=== PATIENT | male | born 1965 | race Caucasian/White ===

== ENCOUNTER 2019-03-31 07:57 | Observation (INO) | payer BC ==
[2019-03-31] MEDS ORDERED: Famotidine 20 MG/2 ML SDV IVPUSH ONE (08:04)
[2019-03-31] MEDS ORDERED: Aspirin 81 MG Tab.Chew CHEW ONE (08:04)
[2019-03-31] MEDS ORDERED: Metoprolol Tartrate 5 MG/5 ML SDV IVPUSH ONE (08:04)
[2019-03-31] MEDS ORDERED: Ticagrelor 90 MG Tab PO ONE (08:04)
--- NOTE | 2019-03-31 08:04 | EDM.PDOC ---
ED HPI GENERAL MEDICAL PROBLEM - General Chief Complaint: Cardiovascular Problem Stated Complaint: HTN,weakness Time Seen by Provider: 03/31/19 08:00 Source of Information: Reports: Patient, Old Records ([facility] chart/EMR) History Limitations: Reports: No Limitations - History of Present Illness INITIAL COMMENTS - FREE TEXT/NARRATIVE: The patient was brought to the emergency room via ambulance with EMT transport for evaluation of progressive generalized weakness, dizziness, mild blurred vision, dyspnea with minimal exertion, and diaphoresis with symptoms starting at about 07:00 a.m. this morning at work, although the patient did not feel right at 05:30 hours this morning. He has had 2 similar episodes during the last month with last episode about 2 weeks ago. There is some some possibility of some mild decreased exercise tolerance over the last couple of months. The patient denies any chest pain/pressure, heart flutter, orthostasis, orthopnea, paresthesias, recent decreased exercise tolerance, or any other anginal-type symptoms. No recent history of abdominal pain, heartburn, nausea, diarrhea, melena, gross hematochezia, or any food intolerance, including fatty foods, etc.. He denies any gross hematuria, colic, or other UTI symptoms. The patient also denies any recent fever, cough, wheezing, etc.. No history of recent headaches, diplopia, change in mental status, or other change in neurological status. He denies any pain or discomfort. Onset: Today, Gradual Onset Date: 03/31/19 Onset Time: 05:30 Duration: Constant, Getting Worse Location: Reports: Other (No pain) Quality: Reports: Same as Previous Episode (As above) Severity: Moderate Improves with: Reports: Rest Worsens with: Reports: Movement (Activity) Context: Reports: Other (As above). Denies: Sick Contact, Trauma Associated Symptoms: Reports: Diaphoresis, Rash (Chronic right hand over the last year), Shortness of Breath, Weakness (Generalized as above). Denies: Confusion, Chest Pain, Cough, Fever/Chills, Headaches, Loss of Appetite, Malaise , Nausea/Vomiting, Seizure, Syncope Treatments WAFER MOUNTER: Reports: Other (see below) (None) - Related Data Allergies Allergy/AdvReac Type Severity Reaction Status Date / Time amoxicillin Allergy Other Verified 03/31/19 08:03 Penicillins Allergy Cannot Verified 07/22/18 17:13 Remember Home Meds: Home Meds Fenofibrate,Micronized [Fenofibrate] 134 mg PO DAILY 03/31/19 [History] Metoprolol Succinate 25 mg PO DAILY 03/31/19 [History] Ubidecarenone [COQ-10] 1 tab PO DAILY 03/31/19 [History] Past Medical History HEENT History: Reports: Allergic Rhinitis, Cataract, Impaired Vision, Other ( See Below). Denies: Glaucoma, Macular Degeneration, Retinal Detachment Other HEENT History: He wears glasses. Beginning bilateral cataracts. Bilateral hearing loss of unknown etiology with no current therapy. Cardiovascular History: Reports: High Cholesterol, Hypertension, Other (See Below). Denies: Afib, Aneurysm, Arrhythmia, Blood Clots/VTE/DVT, CAD, Heart Failure, Heart Murmur, IN, PVD, Syncope Other Cardiovascular History: Dyslipidemia with fatty liver. Respiratory History: Reports: None. Denies: Asthma, Bronchitis, Recurrent, COPD , Intubation, Previous, PE, Pneumonia, Recurrent, Pneumothorax, Sleep Apnea Gastrointestinal History: Reports: Chronic Constipation, Other (See Below). Denies: Celiac Disease, Cholelithiasis, Chronic Diarrhea, Fecal Incontinence, Gastritis, GERD, GI Bleed, Hepatitis, Inflammatory Bowel Disease, Irritable Bowel Syndrome, Jaundice, Pancreatitis, PUD Other Gastrointestinal History: Benign hepatic cysts and fatty liver by CT and MRI as below in 2018. Genitourinary History: Reports: None. Denies: Acute Renal Failure, BPH, Chronic Renal Insuffiency, Renal Calculus, Retention, Urinary, STD, Urinary Incontinence, UTI, Recurrent Musculoskeletal History: Reports: Arthritis, Back Pain, Chronic, Fracture, Neck Pain, Chronic, Osteoarthritis, Other (See Below). Denies: Gout, RA, SLE Other Musculoskeletal History: Right foot fracture in the distal first and second metatarsals in about 2007. Right knee hyperextension. Neurological History: Reports: Headaches, Chronic, Neuropathy, Diabetic, Neuropathy, Peripheral. Denies: Cerebral Aneurysms, Concussion, CVA, Head Trauma, Migraines, MS, Parkinson's, Seizure, TIA, Vertigo Psychiatric History: Reports: None. Denies: Abuse, Victim of, ADD, ADHD, Addiction, Anxiety, Depression, Psych Hospitalization(s), PTSD, Suicide Attempt , Suicidal Ideation Endocrine/Metabolic History: Reports: Diabetes, Type II, Obesity/BMI 30+. Denies: Diabetes, Type I, Hypothyroidism, IDDM Hematologic History: Reports: None. Denies: Anemia, Blood Transfusion(s), Iron Deficiency Immunologic History: Reports: None. Denies: AIDS, HIV, SLE Oncologic (Cancer) History: Reports: None. Denies: Basal Cell Carcinoma, Colon , Hodgkin's Lymphoma, Leukemia, Lymphoma, Malignant Melanoma, Non-Hodgkin's Lymphoma, Prostate, Squamous Cell Carcinoma Dermatologic History: Reports: None. Denies: Eczema, Psoriasis - Infectious Disease History Infectious Disease History: Reports: Chicken Pox, Pertussis (Whooping Cough). Denies: C-Difficile, Measles, Meningitis, Mononucleosis, MRSA, Mumps, Rheumatic Fever, Rubella, Scarlet Fever, Shingles, TB, VRE - Past Surgical History Head Surgeries/Procedures: Reports: None HEENT Surgical History: Reports: Oral Surgery, Other (See Below). Denies: Adenoidectomy, Cataract Surgery, Eye Surgery, Laser Surgery, LASIK, Myringotomy w Tube(s), Naso-Sinus Surgery, Tonsillectomy Other HEENT Surgeries/Procedures: [place] teeth extraction 4 in his 20s. Additional teeth extractions. Cardiovascular Surgical History: Reports: None. Denies: Varicose Respiratory Surgical History: Reports: None. Denies: Thoracentesis GI Surgical History: Reports: None. Denies: Appendectomy, Cholecystectomy, Colonoscopy, EGD, Hernia, Abdominal, Hernia, Inguinal, Hernia Repair/Other Male Surgical History: Reports: Circumcision, Other (See Below). Denies: TURP-Transurethral Resection of Prostate, Vasectomy Other Male Surgeries/Procedures: Circumcision as an infant. Endocrine Surgical History: Reports: None. Denies: Thyroid Biopsy Neurological Surgical History: Denies: C-Spine, Discectomy, Laminectomy, Lumbar Spine, Spinal Fusion, Thoracic Spine, Vertebroplasty Musculoskeletal Surgical History: Reports: None. Denies: Arthroscopic Procedure , Carpal Tunnel, Ganglion Cyst, Joint Replacement, ORIF, Shoulder Surgery Oncologic Surgical History: Reports: None Dermatological Surgical History: Reports: None - Past Imaging History Past Imaging History: Reports: CAT Scan (CT of the abdomen and pelvis with contrast on 07/23/18.), MRI (MRI of the abdomen without contrast on 07/30/18.) Social & Family History - Family History HEENT: Reports: None. Denies: Glaucoma, Macular Degeneration, Retinal Detachment Cardiac: Reports: Bypass, CAD, Hypertension, Stent, Other (See Below). Denies: Afib, Arrhythmia, Blood Clots/VTE/DVT, Cardiomyopathy, Heart Failure, Heart Murmur, High Cholesterol, IN, PVD/COD, Syncope Other Cardiac Family History: Father with history of CABG 6 in his 60s with subsequent PTCA/stents 6. Maternal aunts 2 with CABG in their 70s. Parents with hypertension. Mother on "blood thinner" for unknown reason. Respiratory: Reports: None. Denies: Asthma, COPD, PE, Pneumothorax, Sleep Apnea GI: Reports: Cholelithiasis, Other (See Below). Denies: Celiac Disease, Colon Polyps, GERD, GI bleed, Inflammatory Bowel Disease, Irritable Bowel Syndrome, PUD Other GI Family History: Sister with cholecystectomy. : Reports: None. Denies: Dialysis, Renal Calculus, Renal Disease/ Insufficiency OBGYN: Reports: None. Denies: Endometriosis, Recurrent Spontaneous Musculoskeletal: Reports: Arthritis, Osteoarthritis, Other (See Below). Denies : Gout, RA, SLE Other Musculoskeletal Family History: Mother with arthritis. Neurological: Reports: CVA, Migraines, Other (See Below). Denies: Alzheimers Disease, Cerebral Aneurysms, Dementia, MS, Parkinson's, Seizure, TIA Other Neurological Family History: Maternal grandmother with CVA in her 70s. Psychiatric: Denies: Abuse, Victim of, ADD, ADHD, Anxiety, Depression, Psych Hospitalization(s), PTSD, Suicide Attempt Endocrine/Metabolic: Reports: Diabetes, type II, IDDM, Other (See Below). Denies: Diabetes, Type I, Hypothyroidism Other Endocrine/Metabolic Family History: Father, paternal grandmother, and sister with AODM with sister having borderline disease. Paternal grandfather with IDDM. Hematologic: Reports: None. Denies: Anemia, SLE Immunologic: Reports: None. Denies: AIDS, HIV, SLE Dermatologic: Reports: None. Denies: Eczema, Psoriasis Oncologic: Reports: Prostate, Skin, Other (See Below). Denies: Colon, Hodgkin' s Lymphoma, Leukemia, Non-Hodgkin's Lymphoma Other Oncologic Family History: Father with unknown type of cancer and additional unknown type of skin cancer. Paternal grandfather with fatal metastatic prostate cancer in his early 60s. - Tobacco Use Smoking Status *Q: Never Smoker Tobacco Use Within Last Twelve Months: No Used Tobacco, but Quit: No Smoking Cessation Information Provided To Patient: No Second Hand Smoke Exposure: No Second Hand Smoke Education Provided: No - Caffeine Use Caffeine Use: Reports: Soda (2 sodas per week). Denies: Coffee, Energy Drinks, Tea - Alcohol Use Alcohol Use History: Yes Days Per Week of Alcohol Use: 3 Number of Drinks Per Day: 2 Number of Drinks Per Day Comment: Usually beer. No previous DWIs, problems with alcohol abuse, etc. Total Drinks Per Week: 6 Date of Last Drink: 03/30/19 Alcohol Use in Last Twelve Months: Yes - Recreational Drug Use Recreational Drug Use: No Drug Use in Last 12 Months: No Recreational Drug Type: Denies: Amphetamines (Speed), Cocaine, Heroin, Inhalants (Glues, Solvents, Aerosols), LSD (Acid), Marijuana/Hashish, Methamphetamine, Morphine, Oxycodone - Living Situation & Occupation Living situation: Reports: (1999, no children), Alone Occupation: Employed ([employer] ED ROS GENERAL - Review of Systems Review Of Systems: ROS reveals no pertinent complaints other than HPI. ED EXAM, GENERAL - Physical Exam Exam: See Below Exam Limited By: No Limitations General Appearance: Alert, WD/WN, No Apparent Distress Eye Exam: Bilateral Eye: EOMI, Normal Fundi, Normal Inspection (No nystagmus), PERRL Ears: Normal External Exam, Normal Canal, Normal TMs, Hearing Loss (Mild to moderate bilateral). No: Hearing Grossly Normal Nose: Normal Inspection, Normal Mucosa, No Blood Throat/Mouth: Normal Inspection, Normal Lips, Normal Teeth (Occasional missing teeth), Normal Gums, Normal Oropharynx, Normal Voice, No Airway Compromise. No : Dysphagia, Perioral Cyanosis Head: Atraumatic, Normocephalic. No: Facial Swelling, Facial Tenderness, Sinus Tenderness Neck: Normal Inspection, Supple, Non-Tender, Full Range of Motion. No: Carotid Bruit, Lymphadenopathy (L), Lymphadenopathy (R), Thyromegaly Respiratory/Chest: No Respiratory Distress, Lungs Clear, Normal Breath Sounds, No Accessory Muscle Use, Chest Non-Tender. No: Pleural Rub, Retractions Cardiovascular: Normal Peripheral Pulses, Regular Rate, Rhythm, No Edema, No Gallop, No JVD, No Murmur, No Rub. No: Gallop/S3, Gallop/S4, Friction Rub Peripheral Pulses: 2+: Radial (L), Radial (R), Dorsalis Pedis (L), Dorsalis Pedis (R) GI/Abdominal: Normal Bowel Sounds, Soft, Non-Tender, No Organomegaly, No Distention, No Abnormal Bruit, No Mass, Other (obese). No: Guarding (Male) Exam: Deferred Rectal (Males) Exam: Deferred Back Exam: Normal Inspection, Full Range of Motion. No: CVA Tenderness (L), CVA Tenderness (R), Muscle Spasm Extremities: Normal Inspection, Normal Range of Motion, Non-Tender, No Pedal Edema, Normal Capillary Refill. No: Jm's Sign, Limited Range of Motion Neurological: Alert, Oriented, CN II-XII Intact, Normal Cognition, Normal Gait, Normal Reflexes (Negative Babinski's, finger to nose, and pronator rotation tests. No evidence of facial paresis, tongue deviation, orthostasis, etc.. Excellent reverse thought processes.), No Motor/Sensory Deficits Psychiatric: Normal Affect, Normal Mood Skin Exam: Warm, Dry, Intact, Normal Color, Rash (3 cm in diameter area of tinea over the dorsal aspect of his right hand). No: Diaphoretic, Wound/ Incision Lymphatic: No Adenopathy EKG INTERPRETATION EKG Date: 03/31/19 Time: 08:20 Rhythm: NSR Rate (Beats/Min): 80 [place]: Normal (Left cardiac axis) P-Wave: Present (Mild diffuse biphasic P waves with extreme poor R-wave progression in the anterior leads) QRS: Normal (0.09 seconds with mild repolarization changes) ST-T: Normal QT: Prolonged (416/479 ms) Comparison: NA - No Prior EKG EKG Interpretation Comments: 1. No acute ischemic changes 2. Borderline prolonged QT Course - Vital Signs Last Recorded V/S: Last Vital Signs Temp 37.6 C 03/31/19 08:08 Pulse 77 03/31/19 08:10 Resp 18 03/31/19 09:13 BP 190/92 H 03/31/19 09:13 Pulse Ox 95 03/31/19 09:13 - Orders/Labs/Meds Orders: Active Orders 24 hr Category Date Time Status Cardiac Monitoring [RC] . DIRECTED Care 03/31/19 08:04 Active EKG Documentation Completion [RC] ASDIRECTED Care 03/31/19 08:04 Active Oxygen Therapy, ED [RC] CONTINUOUS Care 03/31/19 08:04 Active Peripheral IV Care [RC] . DIRECTED Care 03/31/19 08:04 Active Pulse Oximetry [RC] CONTINUOUS Care 03/31/19 08:04 Active Up With Assistance [RC] PFP Care 03/31/19 08:04 Active Vital Signs [RC] PFP Care 03/31/19 08:04 Active Nothing per Oral Now Diet [DIET] Diet 03/31/19 Breakfast Active Chest 1V Frontal [CR] Stat Exams 03/31/19 08:04 Taken CK W CKMB [CHEM] Stat Lab 03/31/19 08:01 Received COMPREHENSIVE METABOLIC PN,CMP [CHEM] Stat Lab 03/31/19 08:01 Received CULTURE URINE [RM] Routine Lab 03/31/19 09:05 Ordered ETHANOL BLOOD MEDICAL [CHEM] Stat Lab 03/31/19 08:01 Received LACTIC ACID [CHEM] Stat Lab 03/31/19 08:01 Received MAGNESIUM [CHEM] Stat Lab 03/31/19 08:01 Received PRO B-TYPE NATRIUR PEPT,BNPPRO [CHEM] Stat Lab 03/31/19 08:01 Received TROPONIN I [CHEM] Stat Lab 03/31/19 08:01 Received TSH ULTRASENSITIVE [CHEM] Stat Lab 03/31/19 08:01 Received URIC ACID [CHEM] Stat Lab 03/31/19 08:01 Received URINALYSIS W/MICROSCOPIC [UA W/MICROSCOPIC] [URIN] Lab 03/31/19 09:05 Ordered Routine Nitroglycerin [Nitrostat] Med 03/31/19 08:05 Stat 0.4 mg SL ONETIME STA Sodium Chloride 0.9% [Saline Flush] Med 03/31/19 08:04 Active 10 ml FLUSH ASDIRECTED PRN Obtain Past Medical Record [OM.PC] Urgent Oth 03/31/19 08:04 Active Peripheral IV Insertion Adult [OM.PC] Stat Oth 03/31/19 08:04 Ordered Resuscitation Status Stat Resus Stat 03/31/19 08:04 Ordered EKG 12 Lead [EK] Stat Ther 03/31/19 08:04 Ordered Medication Orders Nitroglycerin (Nitrostat) 0.4 mg SL ONETIME STA Stop: 06/25/19 08:06 Last Admin: 03/31/19 08:10 Dose: 0.4 mg Sodium Chloride (Saline Flush) 10 ml FLUSH ASDIRECTED PRN PRN Reason: Keep Vein Open Last Admin: 03/31/19 09:05 Dose: 10 ml Admin: 03/31/19 08:45 Dose: 10 ml Admin: 03/31/19 08:11 Dose: 10 ml Labs: Laboratory Tests 03/31/19 03/31/19 03/31/19 Range/Units 08:00 08:01 08:01 WBC 4.0 (4.0-10.2) K/uL RBC 4.55 (4.33-5.41) M/uL Hgb 15.1 (13.1-16.8) g/dL Hct 43.0 (39.0-49.0) % MCV 94.5 D (84.0-98.0) fL MCH 33.2 (28.2-33.3) pg MCHC 35.1 (31.7-36.0) g/dL RDW 12.8 (11.2-14.1) % Plt Count 57 L (150-350) K/uL Neut % (Auto) 50.8 (45.0-80.0) % Lymph % (Auto) 35.6 (10.0-50.0) % [place] % (Auto) 11.4 (2.0-14.0) % Eos % (Auto) 1.7 (0.0-5.0) % Baso % (Auto) 0.5 (0.0-2.0) % Neut # (Auto) 2.05 (1.40-7.00) K/uL Lymph # (Auto) 1.44 (0.50-3.50) K/uL [place] # (Auto) 0.46 (0.00-1.00) K/uL Eos # (Auto) 0.07 (0.00-0.50) K/uL Baso # (Auto) 0.02 (0.00-0.20) K/uL PT 11.9 (9.5-12.0) SEC INR 1.1 APTT 29.3 (21.0-31.3) SEC D-Dimer, Quantitative (0-400) ng/mL POC Glucose 261 H* (65-110) mg/dl 03/31/19 Range/Units 08:01 WBC (4.0-10.2) K/uL RBC (4.33-5.41) M/uL Hgb (13.1-16.8) g/dL Hct (39.0-49.0) % MCV (84.0-98.0) fL MCH (28.2-33.3) pg MCHC (31.7-36.0) g/dL RDW (11.2-14.1) % Plt Count (150-350) K/uL Neut % (Auto) (45.0-80.0) % Lymph % (Auto) (10.0-50.0) % [place] % (Auto) (2.0-14.0) % Eos % (Auto) (0.0-5.0) % Baso % (Auto) (0.0-2.0) % Neut # (Auto) (1.40-7.00) K/uL Lymph # (Auto) (0.50-3.50) K/uL [place] # (Auto) (0.00-1.00) K/uL Eos # (Auto) (0.00-0.50) K/uL Baso # (Auto) (0.00-0.20) K/uL PT (9.5-12.0) SEC INR APTT (21.0-31.3) SEC D-Dimer, Quantitative 251 (0-400) ng/mL POC Glucose (65-110) mg/dl Meds: Medications Generic Name Dose Route Start Last Admin Trade Name Freq PRN Reason Stop Dose Admin Nitroglycerin 0.4 mg 03/31/19 08:05 03/31/19 08:10 Nitrostat SL 04/01/19 08:06 0.4 mg ONETIME STA Administration Sodium Chloride 10 ml 03/31/19 08:04 03/31/19 09:05 Saline Flush FLUSH 10 ml ASDIRECTED PRN Administration Keep Vein Open Discontinued Medications Generic Name Dose Route Start Last Admin Trade Name Freq PRN Reason Stop Dose Admin Aspirin 324 mg 03/31/19 08:04 03/31/19 08:09 Aspirin CHEW 03/31/19 08:05 324 mg ONETIME ONE Administration Famotidine 40 mg 03/31/19 08:04 03/31/19 08:10 Pepcid IVPUSH 03/31/19 08:05 40 mg ONETIME ONE Administration Labetalol HCl 10 mg 03/31/19 08:41 03/31/19 08:45 Normodyne IVPUSH 03/31/19 08:42 10 mg ONETIME ONE Administration Protocol Labetalol HCl 10 mg 03/31/19 09:02 03/31/19 09:05 Normodyne IVPUSH 03/31/19 09:03 10 mg ONETIME ONE Administration Protocol Metoprolol Tartrate 2.5 mg 03/31/19 08:04 03/31/19 08:10 Lopressor IVPUSH 03/31/19 08:05 2.5 mg ONETIME ONE Administration Ticagrelor 180 mg 03/31/19 08:04 03/31/19 08:10 Brilinta PO 03/31/19 08:05 180 mg ONETIME ONE Administration - Radiology Interpretation Free Text/Narrative:: Choirmaster shows normal sinus rhythm with heart rate in the 70-90s with no ectopy or arrhythmia. Chest x-ray, portable, shows moderately elevated right hemidiaphragm with borderline cardiomegaly possible centralized mild CHF. No pulmonary infiltrates , pneumothorax, etc. Departure - Departure Time of Disposition: 09:17 Disposition: Still A Patient 30 Condition: Good Clinical Impression: Dyslipidemia, Tinea, Weakness Diabetes mellitus Qualifiers: Diabetes mellitus type: type 2 Diabetes mellitus assisted insulin use: without assisted use Diabetes mellitus complication status: with neurologic complications Diabetes mellitus complication detail: with polyneuropathy Qualified Code(s): E11.42 - Type 2 diabetes mellitus with diabetic polyneuropathy Hypertension Qualifiers: Hypertension type: essential hypertension Qualified Code(s): I10 - Essential ( primary) hypertension Osteoarthritis Qualifiers: Osteoarthritis location: multiple joints Osteoarthritis type: primary Qualified Code(s): M15.0 - Primary generalized (osteo)arthritis Fever Qualifiers: Fever type: unspecified Qualified Code(s): R50.9 - Fever, unspecified Referrals: Marci Enriquez NP [Primary Care Provider] - Forms: ED Department Discharge - Problem List & Annotations (1) Hypertension SNOMED Code(s): 20762823 Code(s): I10 - ESSENTIAL (PRIMARY) HYPERTENSION Status: Acute Current Visit: No Annotation/Comment:: Blood pressure is under poor control with aggressive treatment in the emergency room as above. Continue medication adjustment during this hospitalization. Consider VENKATA inhibitor therapy Qualifiers: Hypertension type: essential hypertension Qualified Code(s): I10 - Essential (primary) hypertension (2) Weakness SNOMED Code(s): 62508099 Code(s): R53.1 - WEAKNESS Status: Acute Priority: High Current Visit: No Onset Date: ~03/31/19 Annotation/Comment:: Suspicious of possible threatening IN. Chest pain protocol was initiated upon patient's arrival in the emergency room. Note no chest pain or anginal type symptoms, however decreased exercise tolerance during the last couple of months. Initiated standard rule out IN orders shortly after patient's arrival to this facility with cardiology consultation depending on his clinical course. Patient would benefit from a Cardiolite stress test on an outpatient basis after his blood pressure is under better control. Borderline CHF by today's chest x-ray. The hospital's chemistry machine is down for the time being with no information concerning cardiac enzymes, etc. to this point. Note nonspecific generalized weakness, however no neurological deficits, or evidence of CVA, etc. by history and/or clinical exam. (3) Diabetes mellitus SNOMED Code(s): 84446590 Code(s): E11.9 - TYPE 2 DIABETES MELLITUS WITHOUT COMPLICATIONS Status: Chronic Priority: High Current Visit: No Annotation/Comment:: Glycosylated hemoglobin should be conducted during this hospitalization. Patient does not take Accu-Cheks at home. Qualifiers: Diabetes mellitus type: type 2 Diabetes mellitus termination clerk insulin use: without assisted use Diabetes mellitus complication status: with neurologic complications Diabetes mellitus complication detail: with polyneuropathy Qualified Code(s): E11.42 - Type 2 diabetes mellitus with diabetic polyneuropathy (4) Dyslipidemia SNOMED Code(s): 782423006 Code(s): E78.5 - HYPERLIPIDEMIA, UNSPECIFIED Status: Chronic Priority: Medium Current Visit: No Annotation/Comment:: Fasting lipid panel during this hospitalization. Weight loss in moderation advisable. (5) Osteoarthritis SNOMED Code(s): 919617571 Code(s): M19.90 - UNSPECIFIED OSTEOARTHRITIS, UNSPECIFIED SITE Status: Chronic Priority: Medium Current Visit: No Annotation/Comment:: Stable by history Qualifiers: Osteoarthritis location: multiple joints Osteoarthritis type: primary Qualified Code(s): M15.0 - Primary generalized (osteo)arthritis (6) Tinea SNOMED Code(s): 16996842 Code(s): B35.9 - DERMATOPHYTOSIS, UNSPECIFIED Status: Chronic Priority: High Current Visit: No Annotation/Comment:: Right hand tinea present for the last year as above. Consider Lotrisone treatment. (7) Fever SNOMED Code(s): 461877188 Code(s): R50.9 - FEVER, UNSPECIFIED Status: Acute Priority: Medium Current Visit: No Onset Date: 03/31/19 Annotation/Comment:: Fever of unknown etiology with no recent history of fever or evidence of infection by today's exam. UA with culture and sensitivity ordered. Qualifiers: Fever type: unspecified Qualified Code(s): R50.9 - Fever, unspecified - Problem List Review Problem List Initiated/Reviewed/Updated: Yes - My Orders Last 24 Hours: My Active Orders 03/31/19 08:01 CK W CKMB [CHEM] Stat COMPREHENSIVE METABOLIC PN,CMP [CHEM] Stat ETHANOL BLOOD MEDICAL [CHEM] Stat LACTIC ACID [CHEM] Stat MAGNESIUM [CHEM] Stat PRO B-TYPE NATRIUR PEPT,BNPPRO [CHEM] Stat TROPONIN I [CHEM] Stat TSH ULTRASENSITIVE [CHEM] Stat URIC ACID [CHEM] Stat 03/31/19 08:04 Cardiac Monitoring [RC] . DIRECTED EKG Documentation Completion [RC] ASDIRECTED Oxygen Therapy, ED [RC] CONTINUOUS Peripheral IV Care [RC] . DIRECTED Pulse Oximetry [RC] CONTINUOUS Up With Assistance [RC] PFP Vital Signs [RC] PFP Chest 1V Frontal [CR] Stat Sodium Chloride 0.9% [Saline Flush] 10 ml FLUSH ASDIRECTED PRN Obtain Past Medical Record [OM.PC] Urgent Peripheral IV Insertion Adult [OM.PC] Stat Resuscitation Status Stat EKG 12 Lead [EK] Stat 03/31/19 08:05 Nitroglycerin [Nitrostat] 0.4 mg SL ONETIME STA 03/31/19 09:05 CULTURE URINE [RM] Routine URINALYSIS W/MICROSCOPIC [UA W/MICROSCOPIC] [URIN] Routine 03/31/19 Breakfast Nothing per Oral Now Diet [DIET] - Assessment/Plan Last 24 Hours: My Active Orders 03/31/19 08:01 CK W CKMB [CHEM] Stat COMPREHENSIVE METABOLIC PN,CMP [CHEM] Stat ETHANOL BLOOD MEDICAL [CHEM] Stat LACTIC ACID [CHEM] Stat MAGNESIUM [CHEM] Stat PRO B-TYPE NATRIUR PEPT,BNPPRO [CHEM] Stat TROPONIN I [CHEM] Stat TSH ULTRASENSITIVE [CHEM] Stat URIC ACID [CHEM] Stat 03/31/19 08:04 Cardiac Monitoring [RC] . DIRECTED EKG Documentation Completion [RC] ASDIRECTED Oxygen Therapy, ED [RC] CONTINUOUS Peripheral IV Care [RC] . DIRECTED Pulse Oximetry [RC] CONTINUOUS Up With Assistance [RC] PFP Vital Signs [RC] PFP Chest 1V Frontal [CR] Stat Sodium Chloride 0.9% [Saline Flush] 10 ml FLUSH ASDIRECTED PRN Obtain Past Medical Record [OM.PC] Urgent Peripheral IV Insertion Adult [OM.PC] Stat Resuscitation Status Stat EKG 12 Lead [EK] Stat 03/31/19 08:05 Nitroglycerin [Nitrostat] 0.4 mg SL ONETIME STA 03/31/19 09:05 CULTURE URINE [RM] Routine URINALYSIS W/MICROSCOPIC [UA W/MICROSCOPIC] [URIN] Routine 03/31/19 Breakfast Nothing per Oral Now Diet [DIET] Assessment:: As above Plan: As above. Patient transferred at 09:10 hours to on-call physician, Dr. Rosas , who was updated concerning patient's status, etc. Probable placement of patient in observation status for rule out IN, adjustment of blood pressure medications, etc. as above.
[2019-03-31] MEDS ORDERED: Nitroglycerin 0.4 MG Tab.SL SL STA (08:05)
[2019-03-31] MEDS: Sodium Chloride 0.9% 10 ML Syringe FLUSH PRN ×4 (08:11→10:50)
[2019-03-31] MEDS ORDERED: Labetalol 20 MG/4 ML Syringe IVPUSH ONE ×3 (08:41→12:52)
[2019-03-31 09:32] LABS: CHLORIDE,CL 98 mmol/L (98-107); SODIUM,NA 137 mmol/L (136-145)
--- NOTE | 2019-03-31 09:45 | EDM.PDOC ---
ED HPI GENERAL MEDICAL PROBLEM - General Chief Complaint: Cardiovascular Problem Stated Complaint: HTN,weakness Time Seen by Provider: 03/31/19 08:00 Source of Information: Reports: Patient, Old Records ([facility] chart/EMR) History Limitations: Reports: No Limitations - History of Present Illness INITIAL COMMENTS - FREE TEXT/NARRATIVE: The patient was brought to the emergency room via ambulance with EMT transport for evaluation of progressive generalized weakness, dizziness, mild blurred vision, dyspnea with minimal exertion, and diaphoresis with symptoms starting at about 07:00 a.m. this morning at work, although the patient did not feel right at 05:30 hours this morning. He has had 2 similar episodes during the last month with last episode about 2 weeks ago. There is some some possibility of some mild decreased exercise tolerance over the last couple of months. The patient denies any chest pain/pressure, heart flutter, orthostasis, orthopnea, paresthesias, recent decreased exercise tolerance, or any other anginal-type symptoms. No recent history of abdominal pain, heartburn, nausea, diarrhea, melena, gross hematochezia, or any food intolerance, including fatty foods, etc.. He denies any gross hematuria, colic, or other UTI symptoms. The patient also denies any recent fever, cough, wheezing, etc.. No history of recent headaches, diplopia, change in mental status, or other change in neurological status. He denies any pain or discomfort. Onset: Today, Gradual Onset Date: 03/31/19 Onset Time: 05:30 Duration: Constant, Getting Worse Location: Reports: Other (No pain) Quality: Reports: Same as Previous Episode (As above) Severity: Moderate Improves with: Reports: Rest Worsens with: Reports: Movement (Activity) Context: Reports: Other (As above). Denies: Sick Contact, Trauma Associated Symptoms: Reports: Diaphoresis, Rash (Chronic right hand over the last year), Shortness of Breath, Weakness (Generalized as above). Denies: Confusion, Chest Pain, Cough, Fever/Chills, Headaches, Loss of Appetite, Malaise , Nausea/Vomiting, Seizure, Syncope Treatments STEREOTYPE MOLDER: Reports: Other (see below) (None) - Related Data Allergies Allergy/AdvReac Type Severity Reaction Status Date / Time amoxicillin Allergy Other Verified 03/31/19 08:03 Penicillins Allergy Cannot Verified 07/22/18 17:13 Remember Home Meds: Home Meds Fenofibrate,Micronized [Fenofibrate] 134 mg PO DAILY 03/31/19 [History] Metoprolol Succinate 25 mg PO DAILY 03/31/19 [History] Ubidecarenone [COQ-10] 1 tab PO DAILY 03/31/19 [History] Past Medical History HEENT History: Reports: Allergic Rhinitis, Cataract, Impaired Vision, Other ( See Below) Other HEENT History: He wears glasses. Beginning bilateral cataracts. Bilateral hearing loss of unknown etiology with no current therapy. Cardiovascular History: Reports: High Cholesterol, Hypertension, Other (See Below) Other Cardiovascular History: Dyslipidemia with fatty liver. Respiratory History: Reports: None Gastrointestinal History: Reports: Chronic Constipation, Other (See Below) Other Gastrointestinal History: Benign hepatic cysts and fatty liver by CT and MRI as below in 2018. Genitourinary History: Reports: None Musculoskeletal History: Reports: Arthritis, Back Pain, Chronic, Fracture, Neck Pain, Chronic, Osteoarthritis, Other (See Below) Other Musculoskeletal History: Right foot fracture in the distal first and second metatarsals in about 2007. Right knee hyperextension. Neurological History: Reports: Headaches, Chronic, Neuropathy, Diabetic, Neuropathy, Peripheral Psychiatric History: Reports: None Endocrine/Metabolic History: Reports: Diabetes, Type II, Obesity/BMI 30+ Hematologic History: Reports: None Immunologic History: Reports: None Oncologic (Cancer) History: Reports: None Dermatologic History: Reports: None - Infectious Disease History Infectious Disease History: Reports: Chicken Pox, Pertussis (Whooping Cough) - Past Surgical History Head Surgeries/Procedures: Reports: None HEENT Surgical History: Reports: Oral Surgery, Other (See Below) Other HEENT Surgeries/Procedures: [place] teeth extraction 4 in his 20s. Additional teeth extractions. Cardiovascular Surgical History: Reports: None Respiratory Surgical History: Reports: None GI Surgical History: Reports: None Male Surgical History: Reports: Circumcision, Other (See Below) Other Male Surgeries/Procedures: Circumcision as an . Endocrine Surgical History: Reports: None Musculoskeletal Surgical History: Reports: None Oncologic Surgical History: Reports: None Dermatological Surgical History: Reports: None - Past Imaging History Past Imaging History: Reports: CAT Scan (CT of the abdomen and pelvis with contrast on 07/23/18.), MRI (MRI of the abdomen without contrast on 07/30/18.) Social & Family History - Family History HEENT: Reports: None Cardiac: Reports: Bypass, CAD, Hypertension, Stent, Other (See Below) Other Cardiac Family History: Father with history of CABG 6 in his 60s with subsequent PTCA/stents 6. Maternal aunts 2 with CABG in their 70s. Parents with hypertension. Mother on "blood thinner" for unknown reason. Respiratory: Reports: None GI: Reports: Cholelithiasis, Other (See Below) Other GI Family History: Sister with cholecystectomy. : Reports: None OBGYN: Reports: None Musculoskeletal: Reports: Arthritis, Osteoarthritis, Other (See Below) Other Musculoskeletal Family History: Mother with arthritis. Neurological: Reports: CVA, Migraines, Other (See Below) Other Neurological Family History: Maternal grandmother with CVA in her 70s. Psychiatric: Denies: Abuse, Victim of, ADD, ADHD, Anxiety, Depression, Psych Hospitalization(s), PTSD, Suicide Attempt Endocrine/Metabolic: Reports: Diabetes, type II, IDDM, Other (See Below) Other Endocrine/Metabolic Family History: Father, paternal grandmother, and sister with AODM with sister having borderline disease. Paternal grandfather with IDDM. Hematologic: Reports: None Immunologic: Reports: None Dermatologic: Reports: None Oncologic: Reports: Prostate, Skin, Other (See Below) Other Oncologic Family History: Father with unknown type of cancer and additional unknown type of skin cancer. Paternal grandfather with fatal metastatic prostate cancer in his early 60s. - Tobacco Use Smoking Status *Q: Never Smoker Used Tobacco, but Quit: No Second Hand Smoke Exposure: No - Caffeine Use Caffeine Use: Reports: Soda - Alcohol Use Days Per Week of Alcohol Use: 3 Number of Drinks Per Day: 2 Total Drinks Per Week: 6 Date of Last Drink: 03/30/19 - Recreational Drug Use Recreational Drug Use: No Drug Use in Last 12 Months: No Recreational Drug Type: Denies: Amphetamines (Speed), Cocaine, Heroin, Inhalants (Glues, Solvents, Aerosols), LSD (Acid), Marijuana/Hashish, Methamphetamine, Morphine, Oxycodone - Living Situation & Occupation Living situation: Reports: (1999, no children), Alone Occupation: Employed ([employer]) ED ROS GENERAL - Review of Systems Review Of Systems: See Below (see Dr.Loperena's noted) ED EXAM, GENERAL - Physical Exam Exam: See Below Free Text/Narrative:: The patient was brought to the emergency room via ambulance with EMT transport for evaluation of progressive generalized weakness, dizziness, mild blurred vision, dyspnea with minimal exertion, and diaphoresis with symptoms starting at about 07:00 a.m. this morning at work, although the patient did not feel right at 05:30 hours this morning. He has had 2 similar episodes during the last month with last episode about 2 weeks ago. There is some some possibility of some mild decreased exercise tolerance over the last couple of months. The patient denies any chest pain/pressure, heart flutter, orthostasis, orthopnea, paresthesias, recent decreased exercise tolerance, or any other anginal-type symptoms. No recent history of abdominal pain, heartburn, nausea, diarrhea, melena, gross hematochezia, or any food intolerance, including fatty foods, etc.. He denies any gross hematuria, colic, or other UTI symptoms. The patient also denies any recent fever, cough, wheezing, etc.. No history of recent headaches, diplopia, change in mental status, or other change in neurological status. He denies any pain or discomfort. Exam Limited By: No Limitations General Appearance: Alert, WD/WN, No Apparent Distress Ears: Normal External Exam, Normal Canal, Normal TMs, Hearing Loss (Mild to moderate bilateral). No: Hearing Grossly Normal Nose: Normal Inspection, Normal Mucosa, No Blood Throat/Mouth: Normal Inspection, Normal Lips, Normal Teeth (Occasional missing teeth), Normal Gums, Normal Oropharynx, Normal Voice, No Airway Compromise. No : Dysphagia, Perioral Cyanosis Head: Atraumatic, Normocephalic. No: Facial Swelling, Facial Tenderness, Sinus Tenderness Neck: Normal Inspection, Supple, Non-Tender, Full Range of Motion. No: Carotid Bruit, Lymphadenopathy (L), Lymphadenopathy (R), Thyromegaly Respiratory/Chest: No Respiratory Distress, Lungs Clear, Normal Breath Sounds, No Accessory Muscle Use, Chest Non-Tender. No: Pleural Rub, Retractions Cardiovascular: Normal Peripheral Pulses, Regular Rate, Rhythm, No Edema, No Gallop, No JVD, No Murmur, No Rub. No: Gallop/S3, Gallop/S4, Friction Rub Peripheral Pulses: 2+: Radial (L), Radial (R), Dorsalis Pedis (L), Dorsalis Pedis (R) GI/Abdominal: Normal Bowel Sounds, Soft, Non-Tender, No Organomegaly, No Distention, No Abnormal Bruit, No Mass, Other (obese). No: Guarding Back Exam: Normal Inspection, Full Range of Motion. No: CVA Tenderness (L), CVA Tenderness (R), Muscle Spasm Extremities: Normal Inspection, Normal Range of Motion, Non-Tender, No Pedal Edema, Normal Capillary Refill. No: Jm's Sign, Limited Range of Motion Neurological: Alert, Oriented, CN II-XII Intact, Normal Cognition, Normal Gait, Normal Reflexes (Negative Babinski's, finger to nose, and pronator rotation tests. No evidence of facial paresis, tongue deviation, orthostasis, etc.. Excellent reverse thought processes.), No Motor/Sensory Deficits Psychiatric: Normal Affect, Normal Mood Skin Exam: Warm, Dry, Intact, Normal Color, Rash (3 cm in diameter area of tinea over the dorsal aspect of his right hand). No: Diaphoretic, Wound/ Incision Lymphatic: No Adenopathy Course - Vital Signs Last Recorded V/S: Last Vital Signs Temp 37.6 C 03/31/19 08:08 Pulse 77 03/31/19 08:10 Resp 20 03/31/19 09:26 BP 175/91 H 03/31/19 09:26 Pulse Ox 95 03/31/19 09:26 - Orders/Labs/Meds Orders: Active Orders 24 hr Category Date Time Status Cardiac Monitoring [RC] . DIRECTED Care 03/31/19 08:04 Active EKG Documentation Completion [RC] ASDIRECTED Care 03/31/19 08:04 Active Oxygen Therapy, ED [RC] CONTINUOUS Care 03/31/19 08:04 Active Peripheral IV Care [RC] . DIRECTED Care 03/31/19 08:04 Active Pulse Oximetry [RC] CONTINUOUS Care 03/31/19 08:04 Active Up With Assistance [RC] PFP Care 03/31/19 08:04 Active Vital Signs [RC] PFP Care 03/31/19 08:04 Active Nothing per Oral Now Diet [DIET] Diet 03/31/19 Breakfast Active Chest 1V Frontal [CR] Stat Exams 03/31/19 08:04 Taken CULTURE URINE [RM] Routine Lab 03/31/19 09:20 Received URINALYSIS W/MICROSCOPIC [UA W/MICROSCOPIC] [URIN] Lab 03/31/19 09:20 Received Routine Nitroglycerin [Nitrostat] Med 03/31/19 08:05 Stat 0.4 mg SL ONETIME STA Sodium Chloride 0.9% [Saline Flush] Med 03/31/19 08:04 Active 10 ml FLUSH ASDIRECTED PRN Obtain Past Medical Record [OM.PC] Urgent Oth 03/31/19 08:04 Active Peripheral IV Insertion Adult [OM.PC] Stat Oth 03/31/19 08:04 Ordered Resuscitation Status Stat Resus Stat 03/31/19 08:04 Ordered EKG 12 Lead [EK] Stat Ther 03/31/19 08:04 Ordered Medication Orders Nitroglycerin (Nitrostat) 0.4 mg SL ONETIME STA Stop: 04/01/19 08:06 Last Admin: 03/31/19 08:10 Dose: 0.4 mg Sodium Chloride (Saline Flush) 10 ml FLUSH ASDIRECTED PRN PRN Reason: Keep Vein Open Last Admin: 03/31/19 09:05 Dose: 10 ml Admin: 03/31/19 08:45 Dose: 10 ml Admin: 03/31/19 08:11 Dose: 10 ml Labs: Laboratory Tests 03/31/19 03/31/19 03/31/19 Range/Units 08:00 08:01 08:01 WBC 4.0 (4.0-10.2) K/uL RBC 4.55 (4.33-5.41) M/uL Hgb 15.1 (13.1-16.8) g/dL Hct 43.0 (39.0-49.0) % MCV 94.5 D (84.0-98.0) fL MCH 33.2 (28.2-33.3) pg MCHC 35.1 (31.7-36.0) g/dL RDW 12.8 (11.2-14.1) % Plt Count 57 L (150-350) K/uL Neut % (Auto) 50.8 (45.0-80.0) % Lymph % (Auto) 35.6 (10.0-50.0) % [place] % (Auto) 11.4 (2.0-14.0) % Eos % (Auto) 1.7 (0.0-5.0) % Baso % (Auto) 0.5 (0.0-2.0) % Neut # (Auto) 2.05 (1.40-7.00) K/uL Lymph # (Auto) 1.44 (0.50-3.50) K/uL [place] # (Auto) 0.46 (0.00-1.00) K/uL Eos # (Auto) 0.07 (0.00-0.50) K/uL Baso # (Auto) 0.02 (0.00-0.20) K/uL PT 11.9 (9.5-12.0) SEC INR 1.1 APTT 29.3 (21.0-31.3) SEC D-Dimer, Quantitative (0-400) ng/mL Sodium (136-145) mmol/L Potassium (3.5-5.1) mmol/L Chloride (98-107) mmol/L Carbon Dioxide (21.0-32.0) mmol/L BUN (7-18) mg/dL Creatinine (0.51-1.17) mg/dL Est Cr Clr Drug Dosing mL/min Estimated GFR (MDRD) mL/min Glucose (74-106) mg/dL POC Glucose 261 H* (65-110) mg/dl Lactic Acid (0.4-2.0) mmol/L Uric Acid (2.6-7.2) mg/dL Calcium (8.5-10.1) mg/dL Magnesium (1.8-2.4) mg/dL Total Bilirubin (0.2-1.0) mg/dL AST (15-37) U/L ALT (12-78) U/L Alkaline Phosphatase (46-116) IU/L Creatine Kinase (26-308) U/L Creatine Kinase Index (0.0-2.5) % CK-MB (CK-2) (0.00-3.60) ng/mL Troponin I (0.000-0.056) ng/mL NT-Pro-B Natriuret Pep (0-125) pg/mL Total Protein (6.4-8.2) g/dL Albumin (3.4-5.0) g/dL TSH, Ultra Sensitive (0.358-3.740) mIU/mL Ethyl Alcohol (0.000-0.080) g/dL 03/31/19 03/31/19 03/31/19 Range/Units 08:01 08:01 08:01 WBC (4.0-10.2) K/uL RBC (4.33-5.41) M/uL Hgb (13.1-16.8) g/dL Hct (39.0-49.0) % MCV (84.0-98.0) fL MCH (28.2-33.3) pg MCHC (31.7-36.0) g/dL RDW (11.2-14.1) % Plt Count (150-350) K/uL Neut % (Auto) (45.0-80.0) % Lymph % (Auto) (10.0-50.0) % [place] % (Auto) (2.0-14.0) % Eos % (Auto) (0.0-5.0) % Baso % (Auto) (0.0-2.0) % Neut # (Auto) (1.40-7.00) K/uL Lymph # (Auto) (0.50-3.50) K/uL [place] # (Auto) (0.00-1.00) K/uL Eos # (Auto) (0.00-0.50) K/uL Baso # (Auto) (0.00-0.20) K/uL PT (9.5-12.0) SEC INR APTT (21.0-31.3) SEC D-Dimer, Quantitative 251 (0-400) ng/mL Sodium 137 (136-145) mmol/L Potassium 3.3 L (3.5-5.1) mmol/L Chloride 98 (98-107) mmol/L Carbon Dioxide 24.7 (21.0-32.0) mmol/L BUN 7 (7-18) mg/dL Creatinine 0.62 (0.51-1.17) mg/dL Est Cr Clr Drug Dosing 139.37 mL/min Estimated GFR (MDRD) > 60 mL/min Glucose 263 H (74-106) mg/dL POC Glucose (65-110) mg/dl Lactic Acid 1.9 (0.4-2.0) mmol/L Uric Acid 2.7 (2.6-7.2) mg/dL Calcium 9.0 (8.5-10.1) mg/dL Magnesium 1.6 L (1.8-2.4) mg/dL Total Bilirubin 1.2 H (0.2-1.0) mg/dL AST 89 H (15-37) U/L ALT 51 (12-78) U/L Alkaline Phosphatase 89 (46-116) IU/L Creatine Kinase 248 (26-308) U/L Creatine Kinase Index 1.1 (0.0-2.5) % CK-MB (CK-2) 2.70 (0.00-3.60) ng/mL Troponin I 0.000 (0.000-0.056) ng/mL NT-Pro-B Natriuret Pep 28 (0-125) pg/mL Total Protein 8.3 H (6.4-8.2) g/dL Albumin 3.4 (3.4-5.0) g/dL TSH, Ultra Sensitive 2.976 (0.358-3.740) mIU/mL Ethyl Alcohol 0.177 H (0.000-0.080) g/dL Meds: Medications Generic Name Dose Route Start Last Admin Trade Name Freq PRN Reason Stop Dose Admin Nitroglycerin 0.4 mg 03/31/19 08:05 03/31/19 08:10 Nitrostat SL 04/01/19 08:06 0.4 mg ONETIME STA Administration Sodium Chloride 10 ml 03/31/19 08:04 03/31/19 09:05 Saline Flush FLUSH 10 ml ASDIRECTED PRN Administration Keep Vein Open Discontinued Medications Generic Name Dose Route Start Last Admin Trade Name Freq PRN Reason Stop Dose Admin Aspirin 324 mg 03/31/19 08:04 03/31/19 08:09 Aspirin CHEW 03/31/19 08:05 324 mg ONETIME ONE Administration Famotidine 40 mg 03/31/19 08:04 03/31/19 08:10 Pepcid IVPUSH 03/31/19 08:05 40 mg ONETIME ONE Administration Labetalol HCl 10 mg 03/31/19 08:41 03/31/19 08:45 Normodyne IVPUSH 03/31/19 08:42 10 mg ONETIME ONE Administration Protocol Labetalol HCl 10 mg 03/31/19 09:02 03/31/19 09:05 Normodyne IVPUSH 03/31/19 09:03 10 mg ONETIME ONE Administration Protocol Metoprolol Tartrate 2.5 mg 03/31/19 08:04 03/31/19 08:10 Lopressor IVPUSH 03/31/19 08:05 2.5 mg ONETIME ONE Administration Ticagrelor 180 mg 03/31/19 08:04 03/31/19 08:10 Brilinta PO 03/31/19 08:05 180 mg ONETIME ONE Administration - Re-Assessments/Exams Free Text/Narrative Re-Assessment/Exam: 03/31/19 09:40 Patient's care handed over to me shortly after 9am. Pending chemistry labs at that time. Please see 's note for initial history, exam, and workup. Troponin zero. However ETOH 0.177, AST 89, Bili 1.2, Mg 1.6, and K 3.3 Plan at this time is to admit the patient to Observation for serial troponins and telemetry to more completely rule out ischemia/MS given reported symptoms. Certainly the elevated BP, ETOH use, and low Magnesium could be contributing factors in patient's presenting complaints. Departure - Departure Time of Disposition: 09:44 Disposition: Refer to Observation Condition: Good Clinical Impression: Dyslipidemia, Tinea, Weakness, Hypomagnesemia Diabetes mellitus Qualifiers: Diabetes mellitus type: type 2 Diabetes mellitus termite exterminator insulin use: without termite exterminator use Diabetes mellitus complication status: with neurologic complications Diabetes mellitus complication detail: with polyneuropathy Qualified Code(s): E11.42 - Type 2 diabetes mellitus with diabetic polyneuropathy Hypertension Qualifiers: Hypertension type: essential hypertension Qualified Code(s): I10 - Essential ( primary) hypertension Osteoarthritis Qualifiers: Osteoarthritis location: multiple joints Osteoarthritis type: primary Qualified Code(s): M15.0 - Primary generalized (osteo)arthritis Fever Qualifiers: Fever type: unspecified Qualified Code(s): R50.9 - Fever, unspecified Elevated ETOH level Qualifiers: Blood alcohol level: 100-119 mg/100 ml Qualified Code(s): Y90.5 - Blood alcohol level of 100-119 mg/100 ml Referrals: Marci Enriquez NP [Primary Care Provider] - Forms: ED Department Discharge - Problem List & Annotations (1) Weakness SNOMED Code(s): 99728746 Code(s): R53.1 - WEAKNESS Status: Acute Priority: High Current Visit: Yes Onset Date: ~03/31/19 Annotation/Comment:: Suspicious of possible threatening MS. Chest pain protocol was initiated upon patient's arrival in the emergency room. Note no chest pain or anginal type symptoms, however decreased exercise tolerance during the last couple of months. Initiated standard rule out MS orders shortly after patient's arrival to this facility with cardiology consultation depending on his clinical course. Patient would benefit from a Cardiolite stress test on an outpatient basis after his blood pressure is under better control. Borderline CHF by today's chest x-ray. The hospital's chemistry machine is down for the time being with no information concerning cardiac enzymes, etc. to this point. Note nonspecific generalized weakness, however no neurological deficits, or evidence of CVA, etc. by history and/or clinical exam. (2) Elevated ETOH level SNOMED Code(s): 029769203 Code(s): R78.0 - FINDING OF ALCOHOL IN BLOOD Status: Acute Priority: High Current Visit: Yes Annotation/Comment:: Patient denies having any ETOH today. States that he had "2 drinks" last night. Denies dependence/abuse. Will observe for any signs of withdrawal during Observation admission. Nurse at [facility] was concerned that patient smelled of ETOH when she initially evaluated him. ER staff also thought they smelled ETOH when patient arrived. Qualifiers: Blood alcohol level: 100-119 mg/100 ml (3) Hypomagnesemia SNOMED Code(s): 185543017 Code(s): E83.42 - HYPOMAGNESEMIA Status: Acute Priority: High Current Visit: Yes Annotation/Comment:: Low Magnesium has been linked to hypertension as well as dizziness. Will give replacement while on Observation and recheck level in AM (4) Diabetes mellitus SNOMED Code(s): 51122842 Code(s): E11.9 - TYPE 2 DIABETES MELLITUS WITHOUT COMPLICATIONS Status: Chronic Priority: High Current Visit: Yes Annotation/Comment:: Glycosylated hemoglobin should be conducted during this hospitalization. Patient does not take Accu-Cheks at home. Qualifiers: Diabetes mellitus type: type 2 Diabetes mellitus termite exterminator insulin use: without longterm use Diabetes mellitus complication status: with neurologic complications Diabetes mellitus complication detail: with polyneuropathy Qualified Code(s): E11.42 - Type 2 diabetes mellitus with diabetic polyneuropathy (5) Hypertension SNOMED Code(s): 66241063 Code(s): I10 - ESSENTIAL (PRIMARY) HYPERTENSION Status: Acute Priority: High Current Visit: Yes Annotation/Comment:: Blood pressure is under poor control with aggressive treatment in the emergency room as above. Continue medication adjustment during this hospitalization. Consider VENKATA inhibitor therapy Qualifiers: Hypertension type: essential hypertension Qualified Code(s): I10 - Essential (primary) hypertension (6) Dyslipidemia SNOMED Code(s): 913294273 Code(s): E78.5 - HYPERLIPIDEMIA, UNSPECIFIED Status: Chronic Priority: Medium Current Visit: No Annotation/Comment:: Fasting lipid panel during this hospitalization. Weight loss in moderation advisable. (7) Osteoarthritis SNOMED Code(s): 759531606 Code(s): M19.90 - UNSPECIFIED OSTEOARTHRITIS, UNSPECIFIED SITE Status: Chronic Priority: Medium Current Visit: Yes Annotation/Comment:: Stable by history Qualifiers: Osteoarthritis location: multiple joints Osteoarthritis type: primary Qualified Code(s): M15.0 - Primary generalized (osteo)arthritis (8) Tinea SNOMED Code(s): 94902301 Code(s): B35.9 - DERMATOPHYTOSIS, UNSPECIFIED Status: Chronic Priority: Low Current Visit: Yes Annotation/Comment:: Right hand tinea present for the last year as above. Consider Lotrisone treatment. (9) Fever SNOMED Code(s): 593626075 Code(s): R50.9 - FEVER, UNSPECIFIED Status: Acute Priority: Medium Current Visit: Yes Onset Date: 03/31/19 Annotation/Comment:: Fever of unknown etiology with no recent history of fever or evidence of infection by today's exam. UA with culture and sensitivity ordered. Qualifiers: Fever type: unspecified Qualified Code(s): R50.9 - Fever, unspecified (10) Insomnia SNOMED Code(s): 360798067 Code(s): G47.00 - INSOMNIA, UNSPECIFIED Status: Chronic Priority: Medium Current Visit: Yes Annotation/Comment:: Patient reports recent insomnia issues over the past few months. May be ETOH related given the significantly elevated blood ETOH noted today. Qualifiers: Insomnia type: unspecified Qualified Code(s): G47.00 - Insomnia, unspecified - Problem List Review Problem List Initiated/Reviewed/Updated: Yes - Assessment/Plan Admission H&P: Please use this note as an admission H&P Assessment:: as above Plan: as above
[2019-03-31] MEDS ORDERED: LORazepam 2 MG/ML SDV IVPUSH ONE (10:00)
[2019-03-31] MEDS ORDERED: Ondansetron 4 MG Tab.DIS PO PRN (10:00)
[2019-03-31] MEDS ORDERED: Magnesium Sulfate/D5W 1 GM/100 ML Premix Bag IV ONE ×2 (10:04→15:00)
[2019-03-31] MEDS ORDERED: Metoprolol Tartrate 25 MG Tab PO ONE (10:04)
[2019-03-31] MEDS ORDERED: Potassium Chloride 20 MEQ Tab.ER PO ONE ×3 (10:05→21:00)
[2019-03-31] MEDS ORDERED: Sodium Chloride 0.9% 1,000 ML IV ONE (10:07)
[2019-03-31] MEDS ORDERED: Diazepam 5 MG Tab PO PRN (12:58)
[2019-03-31] MEDS ORDERED: Lisinopril 5 MG Tab PO SCH (13:00)
[2019-03-31] MEDS ORDERED: Metoprolol Succinate 25 MG Tab.ER PO ONE (16:05)
[2019-03-31] MEDS ORDERED: Betamethasone Dipropionate/Clotrimazole 0.05-1% Crm 15 GM Tube TOP SCH (18:15)
--- NOTE | 2019-03-31 18:27 | PCM.DCSUM1 ---
Discharge Summary - Hospital Course Brief History: Patient admitted to Observation for evaluation of dizziness/ weakness/hypertension. Noted to have low Mg and K, and elevated ETOH. Diagnosis: Stroke: No - Discharge Data Discharge Date: 03/31/19 Discharge Disposition: DC/Tfer to Acute Hospital 02 Condition: Good - Discharge Diagnosis/Problem(s) (1) Hypertension SNOMED Code(s): 04262680 ICD Code: I10 - ESSENTIAL (PRIMARY) HYPERTENSION Status: Acute Priority: High Current Visit: Yes Problem Details: Blood pressure is under poor control with aggressive treatment in the emergency room as above. Only minor improvement noted despite multiple doses of IV Labetolol, IV Metoprolol Tartrate , PO doses of Lisinopril, Metoprolol Succinate, Metoprolol Tartrate, and Ativan. Qualifiers: Hypertension type: essential hypertension Qualified Code(s): I10 - Essential (primary) hypertension (2) Weakness SNOMED Code(s): 79488214 ICD Code: R53.1 - WEAKNESS Status: Acute Priority: High Current Visit: Yes Onset Date: ~03/31/19 Problem Details: This is third episode of sudden severe weakness that patient has experienced over the past 30 days. Episodes last two days before good improvement is noted per patient. Accompanied by dizziness and vision being described as "weird" Chest pain protocol was initiated upon patient's arrival in the emergency room. Note no chest pain or anginal type symptoms, however decreased exercise tolerance during the last couple of months. Initiated standard rule out NV orders shortly after patient's arrival to this facility. Note nonspecific generalized weakness, however no neurological deficits, or evidence of CVA, etc. by history and/or clinical exam. (3) Insomnia SNOMED Code(s): 997656148 ICD Code: G47.00 - INSOMNIA, UNSPECIFIED Status: Chronic Priority: Medium Current Visit: Yes Problem Details: Patient reports sudden recent insomnia issues over the past few months. No previous history of insomnia Qualifiers: Insomnia type: unspecified Qualified Code(s): G47.00 - Insomnia, unspecified (4) Elevated ETOH level SNOMED Code(s): 561209885 ICD Code: R78.0 - FINDING OF ALCOHOL IN BLOOD Status: Acute Priority: High Current Visit: Yes Problem Details: Patient denies having any ETOH today. States that he had "2 drinks" last night. Denies dependence/abuse. No observed changes suggestive of withdrawal noted during stay. Nurse at [facility] was concerned that patient smelled of ETOH when she initially evaluated him. ER staff also thought they smelled ETOH when patient arrived. Qualifiers: Blood alcohol level: 100-119 mg/100 ml Qualified Code(s): Y90.5 - Blood alcohol level of 100-119 mg/100 ml (5) Hypomagnesemia SNOMED Code(s): 552793244 ICD Code: E83.42 - HYPOMAGNESEMIA Status: Acute Priority: High Current Visit: Yes Problem Details: Low Magnesium has been linked to hypertension as well as dizziness. Received IV Magnesium after admission to [facility]. (6) Diabetes mellitus SNOMED Code(s): 75297678 ICD Code: E11.9 - TYPE 2 DIABETES MELLITUS WITHOUT COMPLICATIONS Status: Chronic Priority: High Current Visit: Yes Problem Details: Glycosylated hemoglobin and accuchecks requested. Patient does not take Accu-Checks at home. Qualifiers: Diabetes mellitus type: type 2 Diabetes mellitus middle or intermediate school principal insulin use: without group home use Diabetes mellitus complication status: with neurologic complications Diabetes mellitus complication detail: with polyneuropathy Qualified Code(s): E11.42 - Type 2 diabetes mellitus with diabetic polyneuropathy (7) Dyslipidemia SNOMED Code(s): 805848672 ICD Code: E78.5 - HYPERLIPIDEMIA, UNSPECIFIED Status: Chronic Priority: Medium Current Visit: No Problem Details: Fasting lipid panel was to be obtained in AM. (8) Osteoarthritis SNOMED Code(s): 965943005 ICD Code: M19.90 - UNSPECIFIED OSTEOARTHRITIS, UNSPECIFIED SITE Status: Chronic Priority: Medium Current Visit: Yes Problem Details: Stable by history Qualifiers: Osteoarthritis location: multiple joints Osteoarthritis type: primary Qualified Code(s): M15.0 - Primary generalized (osteo)arthritis (9) Tinea SNOMED Code(s): 11050194 ICD Code: B35.9 - DERMATOPHYTOSIS, UNSPECIFIED Status: Chronic Priority: Low Current Visit: Yes Problem Details: Right hand tinea present for the last year as above. Consider Lotrisone treatment. (10) Fever SNOMED Code(s): 138282992 ICD Code: R50.9 - FEVER, UNSPECIFIED Status: Acute Priority: Medium Current Visit: Yes Onset Date: 03/31/19 Problem Details: Low grade fever of unknown etiology with no recent history of fever or evidence of infection by today's exam. UA unremarkable for UTI. Qualifiers: Fever type: unspecified Qualified Code(s): R50.9 - Fever, unspecified (11) Hypokalemia SNOMED Code(s): 58441812 ICD Code: E87.6 - HYPOKALEMIA Status: Acute Priority: Medium Current Visit: Yes Problem Details: Oral potassium replacement initiated. - Patient Summary/Data Hospital Course: Patient's BP improved slightly, but overall remained significantly elevated throughout Observation stay despite multiple medications aimed at obtaining BP reduction. No obvious signs of ETOH withdrawal noted. Call placed at 1800 to [place] and discussed patient with , Hospitalist. It was decided that patient would benefit from transfer to their facility for a more in-depth workup of his complaints, which will likely include an MRI study to look for lesser common causes of persistent, difficult to treat hypertension. Transfer by EMS arranged. - Discharge Plan Home Medications: Home Meds Fenofibrate,Micronized [Fenofibrate] 134 mg PO DAILY 03/31/19 [History] Metoprolol Succinate 25 mg PO DAILY 03/31/19 [History] Ubidecarenone [COQ-10] 1 tab PO DAILY 03/31/19 [History] Patient Handouts: Potassium chloride tablets, extended-release tablets or capsules, Metoprolol tablets, Ticagrelor oral tablet, Magnesium Sulfate injection, Type 2 Diabetes Mellitus, Self Care, Adult, [id number], Hypertension, Mmrn-[id number], Lorazepam injection, Blood Glucose Monitoring, Adult Forms: ED Department Discharge Referrals: Marci Enriquez [employer] [Primary Care Provider] - - Discharge Summary/Plan Comment DC Time >30 min.: No - Patient Data Vitals - Most Recent: Last Vital Signs Temp 36.8 C 03/31/19 17:58 Pulse 65 03/31/19 17:58 Resp 12 03/31/19 17:58 BP 193/85 H 03/31/19 17:58 Pulse Ox 94 L 03/31/19 17:58 Weight - Most Recent: 101.968 kg I&O - Last 24 hours: Intake & Output 03/31/19 03/31/19 03/31/19 06:59 14:59 22:59 Intake Total 200 480 Output Total 700 800 Balance -500 -320 Lab Results - Last 24 hrs: Laboratory Results - last 24 hr 03/31/19 03/31/19 03/31/19 Range/Units 08:00 08:01 08:01 WBC 4.0 (4.0-10.2) K/uL RBC 4.55 (4.33-5.41) M/uL Hgb 15.1 (13.1-16.8) g/dL Hct 43.0 (39.0-49.0) % MCV 94.5 D (84.0-98.0) fL MCH 33.2 (28.2-33.3) pg MCHC 35.1 (31.7-36.0) g/dL RDW 12.8 (11.2-14.1) % Plt Count 57 L (150-350) K/uL Neut % (Auto) 50.8 (45.0-80.0) % Lymph % (Auto) 35.6 (10.0-50.0) % Crowley % (Auto) 11.4 (2.0-14.0) % Eos % (Auto) 1.7 (0.0-5.0) % Baso % (Auto) 0.5 (0.0-2.0) % Neut # (Auto) 2.05 (1.40-7.00) K/uL Lymph # (Auto) 1.44 (0.50-3.50) K/uL Crowley # (Auto) 0.46 (0.00-1.00) K/uL Eos # (Auto) 0.07 (0.00-0.50) K/uL Baso # (Auto) 0.02 (0.00-0.20) K/uL PT 11.9 (9.5-12.0) SEC INR 1.1 APTT 29.3 (21.0-31.3) SEC D-Dimer, Quantitative (0-400) ng/mL Sodium (136-145) mmol/L Potassium (3.5-5.1) mmol/L Chloride (98-107) mmol/L Carbon Dioxide (21.0-32.0) mmol/L BUN (7-18) mg/dL Creatinine (0.51-1.17) mg/dL Est Cr Clr Drug Dosing mL/min Estimated GFR (MDRD) mL/min Glucose (74-106) mg/dL POC Glucose 261 H* (65-110) mg/dl Lactic Acid (0.4-2.0) mmol/L Uric Acid (2.6-7.2) mg/dL Calcium (8.5-10.1) mg/dL Magnesium (1.8-2.4) mg/dL Total Bilirubin (0.2-1.0) mg/dL AST (15-37) U/L ALT (12-78) U/L Alkaline Phosphatase (46-116) IU/L Creatine Kinase (26-308) U/L Creatine Kinase Index (0.0-2.5) % CK-MB (CK-2) (0.00-3.60) ng/mL Troponin I (0.000-0.056) ng/mL NT-Pro-B Natriuret Pep (0-125) pg/mL Total Protein (6.4-8.2) g/dL Albumin (3.4-5.0) g/dL TSH, Ultra Sensitive (0.358-3.740) mIU/mL Specimen Type Urine Color Urine Appearance Urine pH (5.0-9.0) Ur Specific Bow (1.005-1.030) Urine Protein (NEGATIVE) mg/dL Urine Glucose (UA) (NEGATIVE) mg/dL Urine Ketones (NEGATIVE) mg/dL Urine Occult Blood (NEGATIVE) Urine Nitrite (NEGATIVE) Urine Bilirubin (NEGATIVE) Urine Urobilinogen (0.2-1.0) E.U./dL Ur Leukocyte Esterase (NEGATIVE) Urine RBC /HPF Urine WBC /HPF Ur Epithelial Cells /LPF Urine Bacteria (NONE TO FEW) /HPF Ethyl Alcohol (0.000-0.080) g/dL 03/31/19 03/31/19 03/31/19 Range/Units 08:01 08:01 08:01 WBC (4.0-10.2) K/uL RBC (4.33-5.41) M/uL Hgb (13.1-16.8) g/dL Hct (39.0-49.0) % MCV (84.0-98.0) fL MCH (28.2-33.3) pg MCHC (31.7-36.0) g/dL RDW (11.2-14.1) % Plt Count (150-350) K/uL Neut % (Auto) (45.0-80.0) % Lymph % (Auto) (10.0-50.0) % Crowley % (Auto) (2.0-14.0) % Eos % (Auto) (0.0-5.0) % Baso % (Auto) (0.0-2.0) % Neut # (Auto) (1.40-7.00) K/uL Lymph # (Auto) (0.50-3.50) K/uL Crowley # (Auto) (0.00-1.00) K/uL Eos # (Auto) (0.00-0.50) K/uL Baso # (Auto) (0.00-0.20) K/uL PT (9.5-12.0) SEC INR APTT (21.0-31.3) SEC D-Dimer, Quantitative 251 (0-400) ng/mL Sodium 137 (136-145) mmol/L Potassium 3.3 L (3.5-5.1) mmol/L Chloride 98 (98-107) mmol/L Carbon Dioxide 24.7 (21.0-32.0) mmol/L BUN 7 (7-18) mg/dL Creatinine 0.62 (0.51-1.17) mg/dL Est Cr Clr Drug Dosing 139.37 mL/min Estimated GFR (MDRD) > 60 mL/min Glucose 263 H (74-106) mg/dL POC Glucose (65-110) mg/dl Lactic Acid 1.9 (0.4-2.0) mmol/L Uric Acid 2.7 (2.6-7.2) mg/dL Calcium 9.0 (8.5-10.1) mg/dL Magnesium 1.6 L (1.8-2.4) mg/dL Total Bilirubin 1.2 H (0.2-1.0) mg/dL AST 89 H (15-37) U/L ALT 51 (12-78) U/L Alkaline Phosphatase 89 (46-116) IU/L Creatine Kinase 248 (26-308) U/L Creatine Kinase Index 1.1 (0.0-2.5) % CK-MB (CK-2) 2.70 (0.00-3.60) ng/mL Troponin I 0.000 (0.000-0.056) ng/mL NT-Pro-B Natriuret Pep 28 (0-125) pg/mL Total Protein 8.3 H (6.4-8.2) g/dL Albumin 3.4 (3.4-5.0) g/dL TSH, Ultra Sensitive 2.976 (0.358-3.740) mIU/mL Specimen Type Urine Color Urine Appearance Urine pH (5.0-9.0) Ur Specific Bow (1.005-1.030) Urine Protein (NEGATIVE) mg/dL Urine Glucose (UA) (NEGATIVE) mg/dL Urine Ketones (NEGATIVE) mg/dL Urine Occult Blood (NEGATIVE) Urine Nitrite (NEGATIVE) Urine Bilirubin (NEGATIVE) Urine Urobilinogen (0.2-1.0) E.U./dL Ur Leukocyte Esterase (NEGATIVE) Urine RBC /HPF Urine WBC /HPF Ur Epithelial Cells /LPF Urine Bacteria (NONE TO FEW) /HPF Ethyl Alcohol 0.177 H (0.000-0.080) g/dL 03/31/19 03/31/19 03/31/19 Range/Units 09:20 11:05 13:48 WBC (4.0-10.2) K/uL RBC (4.33-5.41) M/uL Hgb (13.1-16.8) g/dL Hct (39.0-49.0) % MCV (84.0-98.0) fL MCH (28.2-33.3) pg MCHC (31.7-36.0) g/dL RDW (11.2-14.1) % Plt Count (150-350) K/uL Neut % (Auto) (45.0-80.0) % Lymph % (Auto) (10.0-50.0) % Crowley % (Auto) (2.0-14.0) % Eos % (Auto) (0.0-5.0) % Baso % (Auto) (0.0-2.0) % Neut # (Auto) (1.40-7.00) K/uL Lymph # (Auto) (0.50-3.50) K/uL Crowley # (Auto) (0.00-1.00) K/uL Eos # (Auto) (0.00-0.50) K/uL Baso # (Auto) (0.00-0.20) K/uL PT (9.5-12.0) SEC INR APTT (21.0-31.3) SEC D-Dimer, Quantitative (0-400) ng/mL Sodium (136-145) mmol/L Potassium (3.5-5.1) mmol/L Chloride (98-107) mmol/L Carbon Dioxide (21.0-32.0) mmol/L BUN (7-18) mg/dL Creatinine (0.51-1.17) mg/dL Est Cr Clr Drug Dosing mL/min Estimated GFR (MDRD) mL/min Glucose (74-106) mg/dL POC Glucose 240 H (65-110) mg/dl Lactic Acid (0.4-2.0) mmol/L Uric Acid (2.6-7.2) mg/dL Calcium (8.5-10.1) mg/dL Magnesium (1.8-2.4) mg/dL Total Bilirubin (0.2-1.0) mg/dL AST (15-37) U/L ALT (12-78) U/L Alkaline Phosphatase (46-116) IU/L Creatine Kinase (26-308) U/L Creatine Kinase Index (0.0-2.5) % CK-MB (CK-2) (0.00-3.60) ng/mL Troponin I 0.000 (0.000-0.056) ng/mL NT-Pro-B Natriuret Pep (0-125) pg/mL Total Protein (6.4-8.2) g/dL Albumin (3.4-5.0) g/dL TSH, Ultra Sensitive (0.358-3.740) mIU/mL Specimen Type Urincc Urine Color Dark yellow Urine Appearance Clear Urine pH 6.5 (5.0-9.0) Ur Specific Bow 1.020 (1.005-1.030) Urine Protein Trace H (NEGATIVE) mg/dL Urine Glucose (UA) 500 H (NEGATIVE) mg/dL Urine Ketones Negative (NEGATIVE) mg/dL Urine Occult Blood Negative (NEGATIVE) Urine Nitrite Negative (NEGATIVE) Urine Bilirubin Negative (NEGATIVE) Urine Urobilinogen 1.0 (0.2-1.0) E.U./dL Ur Leukocyte Esterase Negative (NEGATIVE) Urine RBC 0-5 /HPF Urine WBC 0-5 /HPF Ur Epithelial Cells Rare /LPF Urine Bacteria Rare (NONE TO FEW) /HPF Ethyl Alcohol (0.000-0.080) g/dL 03/31/19 Range/Units 17:04 WBC (4.0-10.2) K/uL RBC (4.33-5.41) M/uL Hgb (13.1-16.8) g/dL Hct (39.0-49.0) % MCV (84.0-98.0) fL MCH (28.2-33.3) pg MCHC (31.7-36.0) g/dL RDW (11.2-14.1) % Plt Count (150-350) K/uL Neut % (Auto) (45.0-80.0) % Lymph % (Auto) (10.0-50.0) % Crowley % (Auto) (2.0-14.0) % Eos % (Auto) (0.0-5.0) % Baso % (Auto) (0.0-2.0) % Neut # (Auto) (1.40-7.00) K/uL Lymph # (Auto) (0.50-3.50) K/uL Crowley # (Auto) (0.00-1.00) K/uL Eos # (Auto) (0.00-0.50) K/uL Baso # (Auto) (0.00-0.20) K/uL PT (9.5-12.0) SEC INR APTT (21.0-31.3) SEC D-Dimer, Quantitative (0-400) ng/mL Sodium (136-145) mmol/L Potassium (3.5-5.1) mmol/L Chloride (98-107) mmol/L Carbon Dioxide (21.0-32.0) mmol/L BUN (7-18) mg/dL Creatinine (0.51-1.17) mg/dL Est Cr Clr Drug Dosing mL/min Estimated GFR (MDRD) mL/min Glucose (74-106) mg/dL POC Glucose 225 H (65-110) mg/dl Lactic Acid (0.4-2.0) mmol/L Uric Acid (2.6-7.2) mg/dL Calcium (8.5-10.1) mg/dL Magnesium (1.8-2.4) mg/dL Total Bilirubin (0.2-1.0) mg/dL AST (15-37) U/L ALT (12-78) U/L Alkaline Phosphatase (46-116) IU/L Creatine Kinase (26-308) U/L Creatine Kinase Index (0.0-2.5) % CK-MB (CK-2) (0.00-3.60) ng/mL Troponin I (0.000-0.056) ng/mL NT-Pro-B Natriuret Pep (0-125) pg/mL Total Protein (6.4-8.2) g/dL Albumin (3.4-5.0) g/dL TSH, Ultra Sensitive (0.358-3.740) mIU/mL Specimen Type Urine Color Urine Appearance Urine pH (5.0-9.0) Ur Specific Bow (1.005-1.030) Urine Protein (NEGATIVE) mg/dL Urine Glucose (UA) (NEGATIVE) mg/dL Urine Ketones (NEGATIVE) mg/dL Urine Occult Blood (NEGATIVE) Urine Nitrite (NEGATIVE) Urine Bilirubin (NEGATIVE) Urine Urobilinogen (0.2-1.0) E.U./dL Ur Leukocyte Esterase (NEGATIVE) Urine RBC /HPF Urine WBC /HPF Ur Epithelial Cells /LPF Urine Bacteria (NONE TO FEW) /HPF Ethyl Alcohol (0.000-0.080) g/dL Med Orders - Current: Current Medications Betamethasone/Clotrimazole (Lotrisone) 1 gm TOP BID [facility] Coenzyme Q10 (Coenzyme Q10) 30 mg PO DAILY [facility] Diazepam (Valium.) 10 mg PO ONETIME PRN PRN Reason: WITHDRAWAL SYMPTOMS Fenofibrate (Fenofibrate) 134 mg PO DAILY [facility] Lisinopril (Prinivil) 10 mg PO DAILY [facility] Metoprolol Succinate (Toprol Xl) 25 mg PO DAILY [facility] Nitroglycerin (Nitrostat) 0.4 mg SL ONETIME STA Stop: 04/01/19 08:06 Last Admin: 03/31/19 08:10 Dose: 0.4 mg Ondansetron HCl (Zofran Odt) 4 mg PO Q6H PRN PRN Reason: Nausea/Vomiting Potassium Chloride (Klor-Con M20) 20 meq PO ONETIME ONE Stop: 03/31/19 21:01 Sodium Chloride (Saline Flush) 10 ml FLUSH ASDIRECTED PRN PRN Reason: Keep Vein Open Last Admin: 03/31/19 10:50 Dose: 10 ml Discontinued Medications Aspirin (Aspirin) 324 mg CHEW ONETIME ONE Stop: 03/31/19 08:05 Last Admin: 03/31/19 08:09 Dose: 324 mg Famotidine (Pepcid) 40 mg IVPUSH ONETIME ONE Stop: 03/31/19 08:05 Last Admin: 03/31/19 08:10 Dose: 40 mg Sodium Chloride (Normal Saline) 1,000 mls @ 150 mls/hr IV .BOLUS ONE Stop: 03/31/19 16:46 Last Admin: 03/31/19 10:49 Dose: 150 mls/hr Magnesium Sulfate/Dextrose 1 (gm/ Premix) 100 mls @ 100 mls/hr IV ONETIME ONE Stop: 03/31/19 15:59 Last Admin: 03/31/19 14:47 Dose: 100 mls/hr Labetalol HCl (Normodyne) 10 mg IVPUSH ONETIME ONE; Protocol Stop: 03/31/19 08:42 Last Admin: 03/31/19 08:45 Dose: 10 mg Labetalol HCl (Normodyne) 10 mg IVPUSH ONETIME ONE; Protocol Stop: 03/31/19 09:03 Last Admin: 03/31/19 09:05 Dose: 10 mg Labetalol HCl (Normodyne) 10 mg IVPUSH ONETIME ONE; Protocol Stop: 03/31/19 12:53 Last Admin: 03/31/19 14:47 Dose: 10 mg Lisinopril (Prinivil) 5 mg PO DAILY [place] Lorazepam (Ativan) 0.5 mg IVPUSH ONETIME ONE Stop: 03/31/19 10:01 Last Admin: 03/31/19 10:49 Dose: 0.5 mg Magnesium Sulfate/Dextrose (Magnesium Sulfate In D5w 100 Premix) 1 gm IV ONETIME ONE Stop: 03/31/19 10:05 Last Admin: 03/31/19 10:49 Dose: 1 gm Metoprolol Succinate (Toprol Xl) 25 mg PO ONETIME ONE Stop: 03/31/19 16:06 Last Admin: 03/31/19 16:39 Dose: 25 mg Metoprolol Tartrate (Lopressor) 2.5 mg IVPUSH ONETIME ONE Stop: 03/31/19 08:05 Last Admin: 03/31/19 08:10 Dose: 2.5 mg Metoprolol Tartrate (Lopressor) 25 mg PO ONETIME ONE Stop: 03/31/19 10:05 Last Admin: 03/31/19 10:49 Dose: 25 mg Potassium Chloride (Klor-Con M20) 40 meq PO ONETIME ONE Stop: 03/31/19 10:06 Last Admin: 03/31/19 10:48 Dose: 40 meq Potassium Chloride (Klor-Con M20) 20 meq PO ONETIME ONE Stop: 03/31/19 16:01 Last Admin: 03/31/19 16:38 Dose: 20 meq Ticagrelor (Brilinta) 180 mg PO ONETIME ONE Stop: 03/31/19 08:05 Last Admin: 03/31/19 08:10 Dose: 180 mg - Exam General: Reports: Alert, Oriented, Cooperative, No Acute Distress HEENT: Reports: Pupils Equal, Pupils Reactive, EOMI, Mucous Membr. Moist/[place] Neck: Reports: Supple Lungs: Reports: Clear to Auscultation, Normal Respiratory Effort Cardiovascular: Reports: Regular Rate, Regular Rhythm GI/Abdominal Exam: Soft, Non-Tender (Male) Exam: Deferred Rectal (Males) Exam: Deferred Extremities: Normal Capillary Refill Skin: Reports: Warm, Dry Neurological: Reports: No New Focal Deficit Psy/Mental Status: Reports: Alert, Normal Affect, Normal Mood
[2019-04-01] MEDS ORDERED: Fenofibrate,Micronized 134 MG Cap PO SCH (08:00)
[2019-04-01] MEDS ORDERED: Metoprolol Succinate 25 MG Tab.ER PO SCH (08:00)
[2019-04-01] MEDS ORDERED: Lisinopril 5 MG Tab PO SCH (08:00)
== END 2019-03-31 19:30 ==
LOC: LL.ED 07:57 → UNDOADMOB 09:44 → LL.MS 09:44
PROVIDERS: ADMIT Emergency Medicine; ATTEND Emergency Medicine
DX: R53.1 Weakness (principal); I10 Essential (primary) hypertension; R42 Dizziness and giddiness; E87.6 Hypokalemia; E83.42 Hypomagnesemia; R78.0 Finding of alcohol in blood; R50.9 Fever, unspecified; E11.42 Type 2 diabetes mellitus with diabetic polyneuropathy; E78.00 Pure hypercholesterolemia, unspecified; B35.9 Dermatophytosis, unspecified; G47.00 Insomnia, unspecified; M15.0 Primary generalized (osteo)arthritis; Y90.5 Blood alcohol level of 100-119 mg/100 ml; Z88.0 Allergy status to penicillin; Z79.899 Other long term (current) drug therapy
CPT/HCPCS: 36415; 71045; 80053; 81001; 82550; 82553; 82962; 83605; 83735; 83880; 84443; 84484; 84550; 85025; 85379; 85610; 85730; 87086; 93005; 96374; 96375; 99285-25; A9270-GY; G0480; J2060; J3475; J3490; J7030

== ENCOUNTER 2020-05-11 08:43 | Emergency (ER) | payer BC ==
--- NOTE | 2020-05-11 09:45 | EDM.PDOC ---
ED HPI GENERAL MEDICAL PROBLEM - General Chief Complaint: Neurological Problem Time Seen by Provider: 05/11/20 08:45 Source of Information: Reports: Patient, EMS History Limitations: Reports: Altered Mental Status - History of Present Illness INITIAL COMMENTS - FREE TEXT/NARRATIVE: Pt brought to ER via EMS as stroke code Pt noted at 0730 to have episode where he was weak on left side and very confused while at work Unable to ambulate or stand due to left sided weakness Co-workers had to support him Very confused Unable to understand conversation or answer questions EMS states when they arrived on scene, symptoms had improved Upon arrival to ER, symptoms had essentially resolved except for mild confusion No previous hx/o same Pt states when he woke up this AM he did not feel right and almost called in sick to work [employer] fine last PM Onset: Today, Sudden Duration: Improving Location: Reports: Generalized - Related Data Allergies Allergy/AdvReac Type Severity Reaction Status Date / Time amoxicillin Allergy Other Verified 05/11/20 08:56 Penicillins Allergy Cannot Verified 07/22/18 17:13 Remember Home Meds: Home Meds Insulin Glarg,Human.Rec.Analog [Lantus Solostar] 10 unit SUBCUT BEDTIME 05/11/20 [History] Metoprolol Succinate 50 mg PO BEDTIME 05/11/20 [History] Rosuvastatin Calcium 10 mg PO BEDTIME 05/11/20 [History] lisinopriL [Lisinopril] 20 mg PO BEDTIME 05/11/20 [History] Past Medical History HEENT History: Reports: Allergic Rhinitis, Cataract, Impaired Vision, Other (See Below) Other HEENT History: He wears glasses. Beginning bilateral cataracts. Bilateral hearing loss of unknown etiology with no current therapy. Cardiovascular History: Reports: High Cholesterol, Hypertension, Other (See Below) Other Cardiovascular History: Dyslipidemia with fatty liver. Respiratory History: Reports: None Gastrointestinal History: Reports: Chronic Constipation, Other (See Below) Other Gastrointestinal History: Benign hepatic cysts and fatty liver by CT and MRI as below in 2018. Genitourinary History: Reports: None Musculoskeletal History: Reports: Arthritis, Back Pain, Chronic, Fracture, Neck Pain, Chronic, Osteoarthritis, Other (See Below) Other Musculoskeletal History: Right foot fracture in the distal first and second metatarsals in about 2007. Right knee hyperextension. Neurological History: Reports: Headaches, Chronic, Neuropathy, Diabetic, Neuropathy, Peripheral Psychiatric History: Reports: None Endocrine/Metabolic History: Reports: Diabetes, Type II, Obesity/BMI 30+ Hematologic History: Reports: None Immunologic History: Reports: None Oncologic (Cancer) History: Reports: None Dermatologic History: Reports: None - Infectious Disease History Infectious Disease History: Reports: Chicken Pox, Pertussis (Whooping Cough) - Past Surgical History Head Surgeries/Procedures: Reports: None HEENT Surgical History: Reports: Oral Surgery, Other (See Below) Other HEENT Surgeries/Procedures: [place] teeth extraction 4 in his 20s. Additional teeth extractions. Cardiovascular Surgical History: Reports: None Respiratory Surgical History: Reports: None GI Surgical History: Reports: None Male Surgical History: Reports: Circumcision, Other (See Below) Other Male Surgeries/Procedures: Circumcision as an . Endocrine Surgical History: Reports: None Musculoskeletal Surgical History: Reports: None Oncologic Surgical History: Reports: None Dermatological Surgical History: Reports: None - Past Imaging History Past Imaging History: Reports: CAT Scan (CT of the abdomen and pelvis with contrast on 07/23/18.), MRI (MRI of the abdomen without contrast on 07/30/18.) Social & Family History - Family History HEENT: Reports: None Cardiac: Reports: Bypass, CAD, Hypertension, Stent, Other (See Below) Other Cardiac Family History: Father with history of CABG 6 in his 60s with subsequent PTCA/stents 6. Maternal aunts 2 with CABG in their 70s. Parents with hypertension. Mother on "blood thinner" for unknown reason. Respiratory: Reports: None GI: Reports: Cholelithiasis, Other (See Below) Other GI Family History: Sister with cholecystectomy. : Reports: None OBGYN: Reports: None Musculoskeletal: Reports: Arthritis, Osteoarthritis, Other (See Below) Other Musculoskeletal Family History: Mother with arthritis. Neurological: Reports: CVA, Migraines, Other (See Below) Other Neurological Family History: Maternal grandmother with CVA in her 70s. Endocrine/Metabolic: Reports: Diabetes, type II, IDDM, Other (See Below) Other Endocrine/Metabolic Family History: Father, paternal grandmother, and sister with AODM with sister having borderline disease. Paternal grandfather with IDDM. Hematologic: Reports: None Immunologic: Reports: None Dermatologic: Reports: None Oncologic: Reports: Prostate, Skin, Other (See Below) Other Oncologic Family History: Father with unknown type of cancer and additional unknown type of skin cancer. Paternal grandfather with fatal metastatic prostate cancer in his early 60s. - Tobacco Use Smoking Status *Q: Never Smoker - Caffeine Use Caffeine Use: Reports: Soda - Living Situation & Occupation Living situation: Reports: (1999, no children), Alone Occupation: Employed ([employer]) ED ROS GENERAL - Review of Systems Review Of Systems: See Below HEENT: Reports: No Symptoms Respiratory: Reports: No Symptoms Cardiovascular: Reports: No Symptoms GI/Abdominal: Reports: No Symptoms Musculoskeletal: Reports: No Symptoms Neurological: Reports: Confusion, Trouble Speaking, Difficulty Walking, Weakness, Change in Speech, Gait Disturbance Psychiatric: Reports: No Symptoms - Physical Exam Exam: See Below Exam Limited By: Altered Mental Status General Appearance: No Apparent Distress Eye Exam: Bilateral Eye: EOMI, PERRL Nose: Normal Inspection Throat/Mouth: Normal Oropharynx Head Exam: Atraumatic Neck: Supple Respiratory/Chest: Lungs Clear Cardiovascular: Regular Rate, Rhythm GI/Abdominal: Non-Tender Neuro Exam (Abbreviated): Alert, Oriented, Normal Cognition, No Motor/Sensory Deficits, Other (Mildly unsteady gait) Extremities: Pedal Edema Psychiatric: Normal Affect, Normal Mood Course - Orders/Labs/Meds Orders: Active Orders 24 hr Category Date Time Status Chest 1V Frontal [CR] Routine Exams 05/11/20 Ordered Head wo Cont [CT] Routine Exams 05/11/20 Taken Labs: Laboratory Tests 05/11/20 05/11/20 05/11/20 Range/Units 08:51 08:51 08:51 WBC 5.1 (4.0-10.2) K/uL RBC 3.43 L (4.33-5.41) M/uL Hgb 12.3 L D (13.1-16.8) g/dL Hct 35.3 L (39.0-49.0) % MCV 102.9 H D (84.0-98.0) fL MCH 35.9 H (28.2-33.3) pg MCHC 34.8 (31.7-36.0) g/dL RDW 14.9 H (11.2-14.1) % Plt Count 66 L (150-350) K/uL Neut % (Auto) 54.5 (45.0-80.0) % Lymph % (Auto) 29.5 (10.0-50.0) % Chase % (Auto) 11.8 (2.0-14.0) % Eos % (Auto) 2.2 (0.0-5.0) % Baso % (Auto) 2.0 (0.0-2.0) % Neut # (Auto) 2.78 (1.40-7.00) K/uL Lymph # (Auto) 1.50 (0.50-3.50) K/uL Chase # (Auto) 0.60 (0.00-1.00) K/uL Eos # (Auto) 0.11 (0.00-0.50) K/uL Baso # (Auto) 0.10 (0.00-0.20) K/uL PT 11.5 (9.5-12.0) SEC INR 1.2 Sodium 139 (136-145) mmol/L Potassium 3.3 L (3.5-5.1) mmol/L Chloride 103 (98-107) mmol/L Carbon Dioxide 27.3 (21.0-32.0) mmol/L BUN 28 H (7-18) mg/dL Creatinine 2.32 H D (0.51-1.17) mg/dL Est Cr Clr Drug Dosing 36.82 mL/min Estimated GFR (MDRD) 30 mL/min Glucose 165 H (74-106) mg/dL Calcium 9.1 (8.5-10.1) mg/dL Total Bilirubin 2.1 H (0.2-1.0) mg/dL AST 160 H (15-37) U/L ALT 40 (12-78) U/L Alkaline Phosphatase 163 H (46-116) IU/L Troponin I 0.001 (0.000-0.056) ng/mL Total Protein 8.4 H (6.4-8.2) g/dL Albumin 2.8 L (3.4-5.0) g/dL - Re-Assessments/Exams Free Text/Narrative Re-Assessment/Exam: 05/11/20 09:46 CT: Negative See lab D/W Dr Bishop On-call neurology Transfer to [facility] via EMS Departure - Departure Time of Disposition: 09:45 Disposition: DC/Tfer to Acute Hospital 02 Clinical Impression: TIA (transient ischemic attack) - Discharge Information *PRESCRIPTION DRUG MONITORING PROGRAM REVIEWED*: Not Applicable *COPY OF PRESCRIPTION DRUG MONITORING REPORT IN PATIENT HIPOLITO: Not Applicable Referrals: PCP,None [Primary Care Provider] - Sepsis Event Note (ED) - Evaluation Sepsis Screening Result: No Definite Risk - My Orders Last 24 Hours: My Active Orders 05/11/20 Chest 1V Frontal [CR] Routine Head wo Cont [CT] Routine - Assessment/Plan Last 24 Hours: My Active Orders 05/11/20 Chest 1V Frontal [CR] Routine Head wo Cont [CT] Routine
== END 2020-05-11 10:04 ==
LOC: LL.ED 08:43
DX: G45.9 Transient cerebral ischemic attack, unspecified (principal); E78.00 Pure hypercholesterolemia, unspecified; I10 Essential (primary) hypertension; E78.5 Hyperlipidemia, unspecified; M19.90 Unspecified osteoarthritis, unspecified site; E11.42 Type 2 diabetes mellitus with diabetic polyneuropathy; E66.9 Obesity, unspecified; Z68.32 Body mass index [BMI] 32.0-32.9, adult; Z88.0 Allergy status to penicillin; Z88.1 Allergy status to other antibiotic agents; Z79.4 Long term (current) use of insulin; Z79.899 Other long term (current) drug therapy
CPT/HCPCS: 36415; 70450; 71045; 80053; 84484; 85025; 85610; 93005; 99284; 99285-25

== ENCOUNTER 2022-02-10 14:17 | Emergency (ER) | payer BC ==
[2022-02-10] MEDS ORDERED: Sodium Chloride 0.9% 10 ML Syringe FLUSH PRN (14:24)
[2022-02-10] MEDS: Sodium Chloride 0.9% 1,000 ML IV ONE ×2 (14:39→15:46)
[2022-02-10 15:04] LABS: ANION GAP 18.7 meq/L (7-15)
[2022-02-10] MEDS ORDERED: 50% Dextrose in Water 50 ML Syringe IVPUSH PRN (15:28)
[2022-02-10] MEDS ORDERED: Glucagon,Human Recombinant 1 MG Vial IM PRN (15:28)
[2022-02-10] MEDS: 50% Dextrose in Water 50 ML Syringe IVPUSH ONE ×2 (15:45→16:21)
[2022-02-10] MEDS: Insulin Regular, Human 100 Units/ML 3 ML Vial IV ONE (17:22)
[2022-02-10] MEDS: Dextrose 5%-0.9% NaCl 1,000 ML IV SCH (17:22)
[2022-02-10] MEDS: Glucose Gel 15 GM in 37.5 GM Tube PO ONE (17:32)
== END 2022-02-10 18:07 ==
LOC: LL.ED 14:17
DX: K72.00 Acute and subacute hepatic failure without coma (principal); E87.5 Hyperkalemia; E11.649 Type 2 diabetes mellitus with hypoglycemia without coma; E86.0 Dehydration; E78.00 Pure hypercholesterolemia, unspecified; I10 Essential (primary) hypertension; E66.9 Obesity, unspecified; Z88.0 Allergy status to penicillin; Z68.29 Body mass index [BMI] 29.0-29.9, adult; Z79.4 Long term (current) use of insulin; Z20.822 Contact with and (suspected) exposure to COVID-19
CPT/HCPCS: 36415; 80053; 80307; 82947; 83605; 83735; 84132; 85025; 87426; 93005; 96374; 96376; 99285; J1815; J7030; J7042; 93010; 99284